=== PATIENT | female | born 1980 | race Two or more races ===

== ENCOUNTER 2016-04-23 11:45 | Emergency (ER) | payer MEDICARE, OTHER ==
[2016-04-23 12:09] VITALS: TEMP 98.2
[2016-04-23] MEDS ORDERED: HYDROmorphone 1 MG/ML 1 ML SYRINGE IVP STA (12:30)
[2016-04-23] MEDS ORDERED: SODIUM CHLORIDE 0.9% 1,000 ML IV STA ×2 (12:35)
[2016-04-23] MEDS ORDERED: MECLIZINE 12.5 MG TAB PO STA (12:35)
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
[2016-04-23 13:24] LABS: Basophils % (A) 1 %; CH 32.9; CHCM 33.1; Eosinophils # (A) 0.1 k/uL (0-0.7); Eosinophils % (A) 3 %; HCT 40.9 % (34.0-46.0); HDW 2.28; HGB 13.5 gm/dL (11.4-16.0); Luc # (Auto) 0.13; Luc % (Auto) 3; Lymphocytes # (A) 1.7 k/uL (1.0-4.8); Lymphocytes % (A) 38 %; MCH 32.8 pg (25.0-35.0); MCHC 32.9 g/dL (31.0-37.0); MCV 99.7 fL (80.0-100.0); Mean Platelet Volume 6.5; Monocytes # (A) 0.2 k/uL (0-1.0); Monocytes % (A) 5 %; Neutrophils # (A) 2.3 k/uL (1.3-7.7); Neutrophils % (A) 51 %; RDW 12.3 % (11.5-15.5); WBC 4.5 k/uL (3.8-10.6); WBC (Perox) 4.61
[2016-04-23 13:36] LABS: Appearance,Urine Cloudy (Clear); Bacteria,Urine Occasional /hpf; Bilirubin,Urine 4+ (Negative); Glucose,Urine (UA) Negative (Negative); Ketones,Urine Trace (Negative); Leukocyte Esterase,Urine Small (Negative); Mucus,Urine Rare /hpf; Nitrite,Urine Negative (Negative); Particle Count 12687; Protein,Urine 1+ (Negative); Specific Gravity,Urine 1.023 (1.001-1.035); Squamous Epithelial Cell,Urine 45 /hpf (0-4); UA Billing (MACRO vs. MICRO) MICRO; WBC,Urine 3 /hpf (0-5)
--- NOTE | 2016-04-23 13:36 | XR ---
EXAMINATION TYPE: XR chest 2V DATE OF EXAM: 04/23/2016 1:32 PM COMPARISON: Chest x-ray March 31, 2014. HISTORY: Chest pain. TECHNIQUE: Frontal and lateral views of the chest are obtained. FINDINGS: There is no focal air space opacity, pleural effusion, or pneumothorax seen. The cardiac silhouette size is within normal limits. The osseous structures are intact. Cholecystectomy clips a re redemonstrated. IMPRESSION: No acute cardiopulmonary process. No significant change from prior.
[2016-04-23 13:39] LABS: Partial Thromboplastin Time 23.4 sec (22.0-30.0)
[2016-04-23 13:44] LABS: ALT 59 U/L (9-52); AST 31 U/L (14-36); Alkaline Phosphatase 62 U/L (38-126); Amylase 73 U/L (30-110); Anion Gap 10 mmol/L; Blood Urea Nitrogen 16 mg/dL (7-17); Calcium 9.1 mg/dL (8.4-10.2); Carbon Dioxide 23 mmol/L (22-30); Chloride 107 mmol/L (98-107); Glucose 107 mg/dL (74-99); Non-African American GFR(MDRD) >60 (>60 ml/min/1.73 sqM); Potassium 4.8 mmol/L (3.5-5.1); Sodium 140 mmol/L (137-145); Total Bilirubin 0.3 mg/dL (0.2-1.3); Total Protein 7.1 g/dL (6.3-8.2)
[2016-04-23 14:01] LABS: Creatine Kinase 82 U/L (30-135)
[2016-04-23 14:12] LABS: Creatine Kinase MB 0.4 ng/mL (0.0-2.4); Troponin I <0.012 ng/mL (0.000-0.034)
[2016-04-23] MEDS ORDERED: DIAZEPAM 5 MG TAB PO STA (14:33)
[2016-04-23] MEDS ORDERED: HYDROcodone/APAP 5-325MG 1 EACH TAB PO STA (14:33)
[2016-04-23 15:03] VITALS: BP 132/78; PULSE 92; RESP 18
== END 2016-04-23 15:00 | disposition home or self-care (01) ==
LOC: EC 11:45
DX: M54.9 Dorsalgia, unspecified (principal); F31.9 Bipolar disorder, unspecified; G40.909 Epilepsy, unspecified, not intractable, without status epilepticus; F17.200 Nicotine dependence, unspecified, uncomplicated; Z88.8 Allergy status to other drugs, medicaments and biological substances; Z91.048 Other nonmedicinal substance allergy status; Z79.899 Other long term (current) drug therapy
CPT/HCPCS: 96361 ×3; 96374 ×2; 99284 ×2; 36415; 93005; 85379; 80053; 82150; 82550; 82553; 83690; 84484; 85025; 85730; 81001; 81025; 71020; J1170

== ENCOUNTER 2016-06-09 19:27 | Emergency (ER) | payer MEDICARE, OTHER ==
[2016-06-09 19:39] VITALS: BP 136/82; PULSE 98; RESP 18; TEMP 99
[2016-06-09] MEDS ORDERED: ORPHENADRINE 30 MG/ML 2 ML VIAL IM STA (19:47)
[2016-06-09] MEDS ORDERED: traMADol 50 MG STARTER PACK 3 TAB BTL PO STA (19:47)
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
--- NOTE | 2016-06-09 20:29 | XR ---
EXAMINATION TYPE: XR lumbar spine 2 or 3V DATE OF EXAM: 06/09/2016 8:16 PM COMPARISON: NONE HISTORY: Back pain TECHNIQUE: 3 views FINDINGS: Vertebra have normal spacing and alignment. Posterior elements are intact. There is some an terior mild wedging of L4 vertebra that is probably developmental. I do not see a compression fractur e. The sacroiliac joints are normal. There are clips from cholecystectomy. IMPRESSION: Negative lumbar spine exam. No change compared to old CT scan of 04/14/2009.
--- NOTE | 2016-06-09 20:29 | XR ---
EXAMINATION TYPE: XR sacrum coccyx DATE OF EXAM: 06/09/2016 8:17 PM COMPARISON: NONE HISTORY: Pain TECHNIQUE: 3 views FINDINGS: Segments have normal alignment. I see no fracture. Sacroiliac joints appear normal. IMPRESSION: Negative sacrum and coccyx exam.
== END 2016-06-09 20:44 | disposition home or self-care (01) ==
LOC: EC 19:27
DX: M54.5 Low back pain (principal); W10.9XXA Fall (on) (from) unspecified stairs and steps, initial encounter; G40.909 Epilepsy, unspecified, not intractable, without status epilepticus; I10 Essential (primary) hypertension; F90.9 Attention-deficit hyperactivity disorder, unspecified type; F41.9 Anxiety disorder, unspecified; F31.9 Bipolar disorder, unspecified; F17.200 Nicotine dependence, unspecified, uncomplicated; Z79.899 Other long term (current) drug therapy; Z88.6 Allergy status to analgesic agent; Z88.8 Allergy status to other drugs, medicaments and biological substances
CPT/HCPCS: 72100; 72220; 99284; 96372; J2360

== ENCOUNTER 2016-07-27 10:38 | Emergency (ER) | payer MEDICARE, OTHER ==
[2016-07-27] MEDS ORDERED: METOCLOPRAMIDE 5 MG/ML 2 ML VIAL IVP STA (11:48)
[2016-07-27] MEDS ORDERED: diphenhydrAMINE 50 MG/ML 1 ML VIAL IVP STA (11:48)
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
--- NOTE | 2016-07-27 12:56 | CT ---
EXAMINATION TYPE: CT brain graysonine wo con DATE OF EXAM: 07/27/2016 12:43 PM COMPARISON: 06/04/2014 HISTORY: 35-year-old female with pain, head injury to the right mastoid region [address] DLP: 1577 mGycm Automated exposure control for dose reduction was used. Technique: Examination of the head was done in axial plane without intravenous contrast. Coronal and sagittal reconstructions performed. CT of the cervical spine was obtained in axial plane without intravenous injection of contrast mater ial. Coronal and sagittal reformatted images were obtained from the axial views for evaluation of f ractures, spinal alignment and canal. FINDINGS: Head: There is no evidence of acute intracranial hemorrhage, acute ischemic changes, mass, mass-effect, or extra-axial fluid collection. There is no effacement of cerebral sulci or basal subarachnoid cister ns. There is no hydrocephalus. There is no midline shift. Tay-white matter distinction is preserv ed. Paranasal sinuses and mastoid air cells are well pneumatized. Orbits and globes are intact. No calvar ial fracture. Cervical spine: The alignment of the cervical spine is normal on coronal and reformatted images. There is no cranial vertebral abnormality. Fracture of the cervical spine is not seen. Reversal of the normal cervical lo rdosis could be positional or due to muscle spasm. There is no evidence of focal disk herniation thou gh assessment of the spinal canal from C7-T1 and below is limited due to artifact from the patient's shoulders. There is no central spinal canal stenosis. Sagittal and coronal reformatted images confirm above findings. COMBINED IMPRESSION: 1. No acute intracranial abnormality seen. 2. No acute fracture or malalignment of the cervical spine.
[2016-07-27 13:23] VITALS: RESP 18
[2016-07-27] MEDS ORDERED: ACETAMINOPHEN TAB 500 MG TAB PO STA (13:27)
[2016-07-27] MEDS ORDERED: ORPHENADRINE 30 MG/ML 2 ML VIAL IVP STA (13:27)
[2016-07-27 14:16] VITALS: BP 104/61; PULSE 79; TEMP 97.8
== END 2016-07-27 14:16 | disposition home or self-care (01) ==
LOC: EC 10:38
DX: S06.0X0A Concussion without loss of consciousness, initial encounter (principal); S16.1XXA Strain of muscle, fascia and tendon at neck level, initial encounter; G40.909 Epilepsy, unspecified, not intractable, without status epilepticus; F31.9 Bipolar disorder, unspecified; F41.9 Anxiety disorder, unspecified; F17.200 Nicotine dependence, unspecified, uncomplicated; Z79.899 Other long term (current) drug therapy; Z88.6 Allergy status to analgesic agent; Z88.8 Allergy status to other drugs, medicaments and biological substances; Z86.69 Personal history of other diseases of the nervous system and sense organs; W01.10XA Fall on same level from slipping, tripping and stumbling with subsequent striking against unspecified object, initial encounter
CPT/HCPCS: 72125; 70450; 99283; 96374; 96375 ×2; J1200; J2360; J2765

== ENCOUNTER 2017-01-24 18:10 | Emergency (ER) | payer MEDICARE, OTHER ==
[2017-01-24 18:41] VITALS: TEMP 99.1
[2017-01-24] MEDS ORDERED: ONDANSETRON 4 MG/2 ML VIAL IVP STA (19:01)
[2017-01-24] MEDS ORDERED: SODIUM CHLORIDE 0.9% 1,000 ML IV STA (19:01)
[2017-01-24] MEDS ORDERED: HYDROmorphone 1 MG/ML 1 ML SYRINGE IVP STA (19:01)
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
[2017-01-24] MEDS ORDERED: HYDROmorphone 0.5 MG/0.5 ML SYRINGE IVP STA (19:22)
[2017-01-24 19:25] LABS: Basophils % (A) 0 %; CH 33.2; CHCM 33.6; Eosinophils # (A) 0.1 k/uL (0-0.7); Eosinophils % (A) 2 %; HCT 40.6 % (34.0-46.0); HDW 2.31; HGB 13.4 gm/dL (11.4-16.0); Luc # (Auto) 0.14; Luc % (Auto) 2; Lymphocytes # (A) 2.1 k/uL (1.0-4.8); Lymphocytes % (A) 34 %; MCH 32.6 pg (25.0-35.0); MCHC 32.9 g/dL (31.0-37.0); MCV 99.1 fL (80.0-100.0); Mean Platelet Volume 6.7; Monocytes # (A) 0.2 k/uL (0-1.0); Monocytes % (A) 4 %; Neutrophils # (A) 3.6 k/uL (1.3-7.7); Neutrophils % (A) 57 %; RDW 12.3 % (11.5-15.5); WBC 6.2 k/uL (3.8-10.6); WBC (Perox) 6.16
[2017-01-24 19:38] LABS: ALT 19 U/L (9-52); AST 16 U/L (14-36); Alkaline Phosphatase 54 U/L (38-126); Amylase 92 U/L (30-110); Anion Gap 11 mmol/L; Blood Urea Nitrogen 14 mg/dL (7-17); Calcium 9.9 mg/dL (8.4-10.2); Carbon Dioxide 21 mmol/L (22-30); Chloride 109 mmol/L (98-107); Glucose 88 mg/dL (74-99); Non-African American GFR(MDRD) >60 (>60 ml/min/1.73 sqM); Sodium 141 mmol/L (137-145); Total Bilirubin 0.3 mg/dL (0.2-1.3); Total Protein 7.4 g/dL (6.3-8.2)
[2017-01-24 19:40] LABS: Amorphous Sediment,Urine Few /hpf; Appearance,Urine Cloudy (Clear); Bilirubin,Urine 2+ (Negative); Glucose,Urine (UA) Negative (Negative); Ketones,Urine Negative (Negative); Leukocyte Esterase,Urine Negative (Negative); Mucus,Urine Rare /hpf; Nitrite,Urine Negative (Negative); Particle Count 11127; Protein,Urine Negative (Negative); Specific Gravity,Urine 1.012 (1.001-1.035); Squamous Epithelial Cell,Urine 1 /hpf (0-4); UA Billing (MACRO vs. MICRO) MICRO; Urobilinogen,Urine <2.0 mg/dL (<2.0); WBC,Urine 1 /hpf (0-5)
--- NOTE | 2017-01-24 20:52 | US ---
EXAMINATION TYPE: US transvaginal DATE OF EXAM: 01/24/2017 COMPARISON: 04/11/2013 CLINICAL HISTORY: Pain. Hx of endometriosis TECHNIQUE: Transvaginal (TV) Date of LMP: 12/22/2016 EXAM MEASUREMENTS: Uterus: 7.5 x 3.6 x 4.0 cm Endometrial Stripe: 0.38 cm Right Ovary: 4.1 x 2.1 x 3.5 cm Left Ovary: 2.3 x 1.7 x 4.1 cm 1. Uterus: Anteverted wnl 2. Endometrium: wnl 3. Right Ovary: Cystic area seen measuring 2.4 x 1.8 x 2.6cm 4. Left Ovary: wnl Spectral, color and waveform doppler imaging shows good arterial and venous flow within the ovaries ; there is no evidence for ovarian torsion. 5. Bilateral Adnexa: wnl 6. Posterior cul-de-sac: wnl Right cystic area see measuring 2.4 x 1.8 x 2.6cm IMPRESSION: No evidence of ovarian torsion. Simple dominant right ovarian cyst. This is new compared to old exam.
[2017-01-24 21:01] VITALS: BP 114/63; PULSE 72; RESP 18
== END 2017-01-24 21:45 | disposition home or self-care (01) ==
LOC: EC 18:10
DX: N83.201 Unspecified ovarian cyst, right side (principal); R30.0 Dysuria; R35.0 Frequency of micturition; R53.83 Other fatigue; R42 Dizziness and giddiness; I10 Essential (primary) hypertension; G40.909 Epilepsy, unspecified, not intractable, without status epilepticus; F31.9 Bipolar disorder, unspecified; F17.200 Nicotine dependence, unspecified, uncomplicated; Z79.1 Long term (current) use of non-steroidal anti-inflammatories (NSAID); Z79.899 Other long term (current) drug therapy; Z88.6 Allergy status to analgesic agent; Z91.048 Other nonmedicinal substance allergy status; Z87.39 Personal history of other diseases of the musculoskeletal system and connective tissue; Z90.49 Acquired absence of other specified parts of digestive tract
CPT/HCPCS: 36415; 80053; 82150; 83690; 85025; 81001; 81025; 93975; 76830; 99284; 96374; 96375; 96361 ×2; J2405; J1170

== ENCOUNTER 2017-01-26 15:12 | Emergency (ER) | payer MEDICARE, OTHER ==
[2017-01-26] MEDS ORDERED: RX INFO: IV CONTRAST WAS GIVEN 1 EACH MISC MISCELLANE PRN (15:43)
[2017-01-26] MEDS ORDERED: diphenhydrAMINE 50 MG/ML 1 ML VIAL IVP STA (15:51)
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
[2017-01-26] MEDS ORDERED: ONDANSETRON 4 MG/2 ML VIAL IVP STA (16:03)
[2017-01-26] MEDS ORDERED: MORPHINE SULFATE 2 MG/ML SYRINGE IVP ONE (16:03)
[2017-01-26 16:27] LABS: Basophils % (A) 0 %; CH 33.3; CHCM 34.1; Eosinophils # (A) 0.2 k/uL (0-0.7); Eosinophils % (A) 4 %; HDW 2.32; HGB 12.5 gm/dL (11.4-16.0); Luc # (Auto) 0.09; Luc % (Auto) 2; Lymphocytes # (A) 1.9 k/uL (1.0-4.8); Lymphocytes % (A) 42 %; MCH 32.4 pg (25.0-35.0); MCV 98.1 fL (80.0-100.0); Mean Platelet Volume 7.8; Monocytes # (A) 0.2 k/uL (0-1.0); Monocytes % (A) 4 %; Neutrophils # (A) 2.2 k/uL (1.3-7.7); Neutrophils % (A) 48 %; RBC 3.87 m/uL (3.80-5.40); RDW 12.2 % (11.5-15.5); WBC 4.5 k/uL (3.8-10.6); WBC (Perox) 4.38
[2017-01-26 16:34] LABS: Appearance,Urine Clear (Clear); Bilirubin,Urine 2+ (Negative); Glucose,Urine (UA) Negative (Negative); Ketones,Urine Negative (Negative); Leukocyte Esterase,Urine Negative (Negative); Nitrite,Urine Negative (Negative); PH, Urine 6.5 (5.0-8.0); Protein,Urine Negative (Negative); Specific Gravity,Urine 1.007 (1.001-1.035); UA Billing (MACRO vs. MICRO) CHEM; Urobilinogen,Urine <2.0 mg/dL (<2.0)
[2017-01-26 16:54] LABS: ALT 24 U/L (9-52); AST 17 U/L (14-36); Alkaline Phosphatase 50 U/L (38-126); Amylase 93 U/L (30-110); Anion Gap 11 mmol/L; Blood Urea Nitrogen 12 mg/dL (7-17); Calcium 9.3 mg/dL (8.4-10.2); Carbon Dioxide 17 mmol/L (22-30); Chloride 113 mmol/L (98-107); Glucose 91 mg/dL (74-99); Non-African American GFR(MDRD) >60 (>60 ml/min/1.73 sqM); Sodium 141 mmol/L (137-145); Total Bilirubin 0.2 mg/dL (0.2-1.3)
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
[2017-01-26 17:23] VITALS: BP 111/68; PULSE 70; RESP 18; TEMP 99.1
== END 2017-01-26 18:06 | disposition home or self-care (01) ==
LOC: EC 15:12
DX: N83.201 Unspecified ovarian cyst, right side (principal); G40.909 Epilepsy, unspecified, not intractable, without status epilepticus; F17.200 Nicotine dependence, unspecified, uncomplicated; Z91.048 Other nonmedicinal substance allergy status; Z79.1 Long term (current) use of non-steroidal anti-inflammatories (NSAID); Z88.6 Allergy status to analgesic agent; Z79.899 Other long term (current) drug therapy
CPT/HCPCS: 36415; 80053; 82150; 83690; 85025; 81003; 81025; 74177; 99284; 96374; 96375 ×2; J1200; J2405; J2270; Q9967